=== PATIENT | male | born 1960 | race Caucasian/White ===

== ENCOUNTER 2020-08-14 17:04 | Emergency (ER) | payer OTHER, BC ==
[~2020-08-14] VITALS: Ht 182.8 cm; Wt 104.5 kg
[2020-08-14 17:10] VITALS: BP 152/79
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
[2020-08-14] MEDS ORDERED: IBUP-1780 PO (18:15)
[2020-08-14] MEDS ORDERED: ACHD5005 PO (18:15)
== END 2020-08-14 18:25 | disposition home or self-care (01) ==
LOC: ER FS 17:06
DX: S13.4XXA Sprain of ligaments of cervical spine, initial encounter (principal); S23.3XXA Sprain of ligaments of thoracic spine, initial encounter; S33.5XXA Sprain of ligaments of lumbar spine, initial encounter; V69.9XXA Occupant (driver) (passenger) of heavy transport vehicle injured in unspecified traffic accident, initial encounter
CPT/HCPCS: 72125; 72128; 72131

== ENCOUNTER 2020-09-04 05:41 | Outpatient (RCR) | payer BC ==
[~2020-09-04 05:41] MED LIST: ACHD5005 PO; IBUP-1780 PO
== END 2020-12-03 | disposition home or self-care (01) ==
LOC: PREOP 05:41
PROVIDERS: ATTEND Surgery
DX: Z01.818 Encounter for other preprocedural examination (principal)

== ENCOUNTER 2022-12-07 12:23 | Emergency (ER) | payer BC ==
[~2022-12-07] VITALS: Ht 182.9 cm; Wt 113.5 kg
[2022-12-07 12:32] VITALS: BP 155/82
--- NOTE | 2022-12-07 12:33 | ED Upper Extremity ---
General Chief Complaint: Upper Extremity Stated Complaint: L SHOULDER INJURY Source: patient History of Present Illness Date Seen by Provider: Dec 07, 2022 Time Seen by Provider: 12:25 Initial Comments 62-year-old male presenting with complaints of left shoulder pain. He was using a chainsaw and it kicked back hitting him in the shoulder. He has pain with abduction of the arm and shoulder. He has intact pulses and movement and sensation to his left arm. He denies prior history of problems with the left shoulder. There is a superficial abrasion to the left elbow. He denies other injuries. He believes his last tetanus was around 5 years ago. He has a history of diabetes, hypothyroid, hypertension. He denies allergies to medic ations but meperidine is listed in the electronic medical record as an allergy. Location Injury Occurred: home Onset: just prior to arrival (about 1 hour) Severity: moderate Pain/Injury Location: left shoulder Method of Injury: direct blow Modifying Factors: Improves With Immobilization; Worse With Movement; Improves With Pain Medication (took ibuprofen after it happened) Allergies and Home Medications Allergies Coded Allergies: meperidine (Verified Allergy, Unknown, 08/14/20) Patient Home Medication List Home Medication List Reviewed: Yes Hydrocodone/Acetaminophen (Hydrocodone-Acetamin 5-325 mg) 1 Each Tablet, 1 EACH PO Q6H PRN for PAIN-SEVERE (8-10) Prescribed by: NICOLAS LOVELACE on 08/14/201814 Ibuprofen (Ibuprofen) 800 Mg Tablet, 800 MG PO Q8H PRN for PAIN Prescribed by: NICOLAS LOVELACE on 08/14/201814 Review of Systems Constitutional: no symptoms reported EENTM: no symptoms reported Respiratory: no symptoms reported Cardiovascular: no symptoms reported Gastrointestinal: no symptoms reported Genitourinary: no symptoms reported Musculoskeletal: see HPI Skin: No change in color Psychiatric/Neurological: No Symptoms Reported Past Oqbtgvn-Kajxpz-Cphpnw Hx Seasonal Allergies Seasonal Allergies: No Past Medical History Surgery/Hospitalization HX: Diabetes, Hypertension, Hypothyroid Surgeries: Yes Gallbladder Respiratory: No Cardiac: Yes Heart Attack Neurological: No Genitourinary: No Gastrointestinal: No Musculoskeletal: No Endocrine: Yes Diabetes, Non-Insulin dep HEENT: No Cancer: No Psychosocial: No Integumentary: No Blood Disorders: No Physical Exam Vital Signs Vital Signs - First Documented 12/07/22 12:32 Temp 36.7 Pulse 93 Resp 16 B/P (MAP) 155/82 (106) Pulse Ox 96 O2 Delivery Room Air Capillary Refill : Height, Weight, BMI Height: '" Weight: lbs. oz. kg; 31.00 BMI Method: General Appearance: WD/WN, no apparent distress HEENT: PERRL/EOMI Neck: non-tender, full range of motion, supple, normal inspection Cardiovascular: normal peripheral pulses, regular rate, rhythm Respiratory: chest non-tender, lungs clear, normal breath sounds Shoulder: No asymmetry, No deformity, No ecchymosis; limited ROM (due to pain), pain Elbow/Forearm: abrasions (left lateral elbow) Neurologic/Tendon: normal sensation, normal motor functions, normal tendon functions Neurologic/Psychiatric: no motor/sensory deficits, alert, oriented x 3 Skin: normal color, warm/dry Procedures/Interventions Splinting and Joint Reduction : Location: Left shoulder and upper arm Pre-Proc Neuro Vasc Exam: normal Post-Proc Neuro Vasc Exam: normal Progress Provided a shoulder and arm sling for the left arm to limit use of the left shoulder. Patient was neurovascular and tendon intact both pre and post placement of the sling. Counseled on follow-up and return precautions. Progress/Results/Core Measures Results/Orders My Orders Orders - MATTI DILLARD MD Shoulder 3 View Left (12/07/22 12:30) Ice: Apply To Affected Area (12/07/22 12:30) Wound Dressing-Ed (12/07/22 12:44) Orthopedic Equiment (12/07/22 12:44) Ed Ortho/Other Supplies Order (12/07/22 12:44) Vital Signs/I&O 12/07/22 12:32 Temp 36.7 Pulse 93 Resp 16 B/P (MAP) 155/82 (106) Pulse Ox 96 O2 Delivery Room Air Progress Progress Note #1: Progress Note Potential diagnosis of shoulder contusion, clavicle fracture, humerus fracture, shoulder dislocation, rib fracture. Obtain x-rays of the left shoulder to evaluate for injury with him having pain with abduction and palpation. He reported Ibuprofen taken after the accident. He has pain 3 out of 10 as long as he is not trying to raise his arm. Ice pack for pain and obtain imaging to look for acute bony abnormality. Progress Note #2: Time: 12:39 Progress Note On my personal interpretation and review of the three-view films of the left shoulder I did not appreciate any acute fracture or dislocation. Counseled patient on findings and results. Will use a sling for a few days to help rest his shoulder. Clean the abrasion on his left elbow and apply a Band-Aid. Advised to keep the abrasion clean with soap and water. Continue with ibuprofen up to 800 mg every 8 hours as needed for pain and inflammation. May take acetaminophen in addition to that if needed for more pain control. Use ice 20 to 30 minutes every few hours as needed for pain and inflammation. If not improving over the next few days check back with the clinic as they may need to do MRI or physical therapy to help. Diagnostic Imaging Diagonstic Imaging: Xray Plain Films/CT/US/NM/MRI: other (left shoulder) Comments NAME: SHAD [facility] REC#: [id number] PT STATUS: REG ER : 1960 PHYSICIAN: MATTI DILLARD MD ADMIT DATE: 12/07/22/ER FS Draft Date of Exam:12/07/22 SHOULDER 3 VIEW LEFT CLINICAL INDICATION: Chainsaw kicked back and hit him in shoulder an hour prior to arrival. Patient with left shoulder pain. EXAM: X-ray of the left shoulder, three views. COMPARISON: None. FINDINGS: There is no acute fracture or dislocation. There are small degenerative spurs involving the left acromioclavicular region. There is no other significant bony abnormality. IMPRESSION: There is no acute fracture or dislocation. Dictated on workstation # [id number] Dict: 12/07/22 1245 Trans: 12/07/22 1251 [id number] Interpreted by: ADA MURILLO MD Electronically signed by: Reviewed: Reviewed by Me (I reviewed the radiologist report at 1259. They did not see any acute process similar to my interpretation) Departure Impression Primary Impression: Strain of unspecified muscle, fascia and tendon at shoulder and upper arm level, left arm, initial encounter Additional Impressions: Contusion of left shoulder, initial encounter Contact with chainsaw as cause of accidental injury Disposition: 01 HOME, SELF-CARE Condition: Stable Departure-Patient Inst. Decision time for Depature: 12:46 Referrals: RUSTAM ENRIQUEZ MD (PCP/Family) Primary Care Physician Patient Instructions: Shoulder Pain ED, Muscle Strain ED, Minor Contusion ED, Using Cold for Pain Add. Discharge Instructions: Use sling to let your shoulder rest for 2-3 days. After 3 days you should keep your arm out of the sling as the longer you use it the more your shoulder could start to freeze up and get more stiff. May apply ice 20-30 minutes every few hours as needed for pain and inflammation. Continue with Ibuprofen 800 mg or 4 of the over the counter 200 mg pill, every 8 hours for pain and inflammation. If needed you could take acetaminophen (Tylenol) 650 mg every 6 hours as needed for additional pain control. Check with clinic if not improving as they may need to do MRI to check soft tissues and rotator cuff, or set you up for physical therapy to help with your shoulder. All discharge instructions reviewed with patient and/or family. Voiced understanding. MATTI DILLARD MD Dec 07, 2022 12:33
--- NOTE | 2022-12-07 12:52 | Diagnostic Imaging Report ---
CLINICAL INDICATION: Chainsaw kicked back and hit him in shoulder an hour prior to arrival. Patient with left shoulder pain. EXAM: X-ray of the left shoulder, three views. COMPARISON: None. FINDINGS: There is no acute fracture or dislocation. There are small degenerative spurs involving the left acromioclavicular region. There is no other significant bony abnormality. IMPRESSION: There is no acute fracture or dislocation. Dictated by: Dictated on workstation # [id number]
== END 2022-12-07 12:55 | disposition home or self-care (01) ==
LOC: EDUNIT# 12:23 → ER FS 12:24
DX: S46.912A Strain of unspecified muscle, fascia and tendon at shoulder and upper arm level, left arm, initial encounter (principal); S50.312A Abrasion of left elbow, initial encounter; Z28.310 Unvaccinated for COVID-19; W31.2XXA Contact with powered woodworking and forming machines, initial encounter
CPT/HCPCS: 73030

== ENCOUNTER → 2023-01-23 | Outpatient (CLI) | payer BC ==
[~2023-01-23] MED LIST changes: +CATHETER FLUSH 10 ML SYR IV PRN; +HOLD METFORMIN - RECEIVED CONTRAST 20 ML VIAL IV SCH; +IOHEXOL 350 MG/ML 100 ML (OMNIPAQUE 350) VIAL IV ONE; +NS 100 ML (IVPB) BAG IV ONE
[2023-01-23 12:35] LABS: CREATININE SERUM 0.93 MG/DL (0.60-1.30)
--- NOTE | 2023-01-23 16:36 | Diagnostic Imaging Report ---
PROCEDURE: CT neck soft tissue with contrast. TECHNIQUE: Multiple contiguous axial images were obtained through the neck after the administration of contrast. Auto Exposure Controls were utilized during the CT exam to meet ALARA standards for radiation dose reduction. INDICATION: Thyroid nodule. Neck pain and difficulty swallowing. COMPARISON: CT cervical spine from 08/14/2020. FINDINGS: Thyroid is normal in size without nodule. The nasopharynx and oropharynx have symmetric mucosa without mass. There is no mass at the base of the tongue. The epiglottis is normal in appearance. The paraglottic space has normal fat. No hypopharyngeal mass. No cervical lymphadenopathy. Parotid and submandibular glands are normal. Degenerative straightening of the cervical spine is present. Lung apices are clear. Small mucus retention cysts in the left maxillary sinus. Globes are normal in appearance. IMPRESSION: 1. Widely patent airway without abnormal mass effect. 2. Thyroid is normal by CT. Dictated by: Dictated on workstation # [id number]
== END ==
LOC: RAD 11:44
PROVIDERS: ATTEND Otolaryngology Otolaryngology/Facial Plastic Surgery
DX: E04.1 Nontoxic single thyroid nodule (principal)
CPT/HCPCS: 36415; 70491; 82565

== ENCOUNTER → 2023-01-23 | Outpatient (CLI) | payer BC ==
[~2023-01-23] MED LIST changes: -CATHETER FLUSH 10 ML SYR IV PRN; -HOLD METFORMIN - RECEIVED CONTRAST 20 ML VIAL IV SCH; -IOHEXOL 350 MG/ML 100 ML (OMNIPAQUE 350) VIAL IV ONE; -NS 100 ML (IVPB) BAG IV ONE
== END ==
LOC: CARD 11:45
PROVIDERS: ATTEND Physician Assistant
DX: E04.1 Nontoxic single thyroid nodule (principal); I10 Essential (primary) hypertension
CPT/HCPCS: 93306

== ENCOUNTER → 2023-05-28 | Outpatient (CLI) | payer BC ==
[~2023-05-28] MED LIST changes: +CATHETER FLUSH 10 ML SYR IVP PRN
[2023-05-28 09:11] VITALS: BP 177/92
--- NOTE | 2023-05-28 10:59 | Cardiology Stress Test Report ---
Stress Test Report Date of Procedure/Referring: Date of Procedure: May 28, 2023 PCP Carlos Seo MD Admitting Physician Admitting Physician: Attending Physician: Zuleima Bledsoe Baseline Heart Rate: 81 Baseline Blood Pressure: Blood Pressure Systolic: 177 Blood Pressure Diastolic: 92 Vital Signs Date Time Temp Pulse Resp B/P (MAP) Pulse Ox O2 Delivery O2 Flow Rate FiO2 05/28/23 09:11 81 177/92 (120) Baseline Vital Signs Vital Signs Date Time Temp Pulse Resp B/P (MAP) Pulse Ox O2 Delivery O2 Flow Rate FiO2 05/28/23 09:11 81 177/92 (120) Baseline EKG: Baseline EKG: NSR Summary: After explaining the procedure and details to the patient, he signed the consent and was brought to the stress nuclear laboratory. Patient exercised on standard Ji protocol, EKG, heart rate and blood pressure were monitored continuously, resting and stress doses of radio tracer were injected, imaging was acquired and reviewed in the short axis, horizontal long axis and vertical long axis views Patient was able to exercise for a total of 4 minutes on Ji protocol, METs 4.7 Maximum heart rate 136 Maximum blood pressure 205/111 Stress EKG, Minimal nondiagnostic changes Recovery EKG, Return to baseline TID: 1.03 SSS: 1 SDS: 1 EF: 61 Conclusion: Fair exercise tolerance for a total of 4 minutes on standard Ji protocol, 4.7 METS achieving 86% of maximal expected heart rate Appropriate heart rate response to exercise with hypertensive response to exercise return to baseline during recovery, peak blood pressure 205/111 Minimal nondiagnostic EKG changes with exercise return to baseline during recov kevin Diaphragmatic attenuation with typical male pattern, no significant ischemia or infarction noted on SPECT images Normal left ventricular size, ejection fraction 61% Copy Copies To 1: CARLOS SEO MD, BASHAR J MD May 28, 2023 10:59
== END ==
LOC: CARD 08:05
PROVIDERS: ATTEND Physician Assistant
DX: I10 Essential (primary) hypertension (principal); E78.2 Mixed hyperlipidemia; I35.8 Other nonrheumatic aortic valve disorders; R42 Dizziness and giddiness
CPT/HCPCS: 78452; 93017; A9502